=== PATIENT | male | born 1985 | race Caucasian/White ===

== ENCOUNTER 2018-09-05 19:27 | Observation (INO) | payer BC, OTHER ==
[~2018-09-05] VITALS: Ht 165.1 cm; Wt 130.0 kg
[2018-09-05] MEDS ORDERED: hydrALAzine 20 MG INJ IV ONE (22:30)
[2018-09-05] MEDS ORDERED: ENALAPRILAT 1.25 MG INJ IV ONE (22:30)
[2018-09-05] MEDS ORDERED: NITROGLYCERIN (SL) 0.4 MG TAB SL ONE (22:30)
[2018-09-06] VITALS (10 sets, daily range): BP systolic 133–176; BP diastolic 73–95; PULSE 85–120; RESP 18–21; Ht 165.1 cm; Wt 130.0 kg
[2018-09-06] MEDS ORDERED: METOPROLOL 5 MG INJ IV ONE (00:30)
--- NOTE | 2018-09-06 02:19 | ERD ---
ER Documentation Chief Complaint Chief Complaint numbness of hands,no droop, high blood pressure not on meds HPI Is a 33-year-old male comes in with numbness in his hands noted with elevated blood pressure. He has a history of blood pressure but has not been taking his meds for the past 6 months. Denies any fevers chills nausea vomiting. He did complain of mild chest pain that is since resolved. No shortness of breath. No other current issues. ROS All systems reviewed and are negative except as per history of present illness. Medications Home Meds No Active Prescriptions or Reported Meds Allergies Allergies: Coded Allergies: No Known Allergy (Unverified , 09/05/18) PMhx/Soc Medical and Surgical Hx: pt denies Surgical Hx History of Surgery: No Anesthesia Reaction: No Hx Neurological Disorder: No Hx Respiratory Disorders: No Hx Cardiac Disorders: Yes (HTN) Hx Psychiatric Problems: No Hx Miscellaneous Medical Probl: No Hx Alcohol Use: Yes Hx Substance Use: No Hx Tobacco Use: No Smoking Status: Never smoker Physical Exam Vitals Vital Signs Date Temp Pulse Resp B/P (MAP) Pulse Ox O2 O2 Flow FiO2 Time Delivery Rate 09/06/18 82 16 181/117 99 Room Air 00:43 (138) 09/05/18 108 19 205/132 99 Room Air 23:28 (156) 09/05/18 94 13 219/140 100 Room Air 22:00 (166) 09/05/18 98.8 105 18 253/155 98 20:02 (187) Physical Exam Const: No acute distress Head: Atraumatic Eyes: Normal Conjunctiva ENT: Normal External Ears, Nose and Mouth. Neck: Full range of motion. No meningismus. Resp: Clear to auscultation bilaterally Cardio: Regular rate and rhythm, no murmurs Abd: Soft, non tender, non distended. Normal bowel sounds Skin: No petechiae or rashes Back: No midline or flank tenderness Ext: No cyanosis, or edema Neur: Awake and alert Psych: Normal Mood and Affect Result Diagram: 09/05/18215409/05/182154 Results 24 hrs Laboratory Tests Test 09/05/18 21:55 White Blood Count 14.2 10^3/ul Red Blood Count 5.43 10^6/ul Hemoglobin 16.0 g/dl Hematocrit 48.1 % Mean Corpuscular Volume 88.6 fl Mean Corpuscular Hemoglobin 29.5 pg Mean Corpuscular Hemoglobin Concent 33.3 g/dl Red Cell Distribution Width 13.1 % Platelet Count 297 10^3/UL Mean Platelet Volume 9.4 fl Immature Granulocytes % 0.500 % Neutrophils % 77.6 % Lymphocytes % 15.4 % Monocytes % 4.4 % Eosinophils % 1.2 % Basophils % 0.9 % Nucleated Red Blood Cells % 0.0 /100WBC Immature Granulocytes # 0.070 10^3/ul Neutrophils # 11.0 10^3/ul Lymphocytes # 2.2 10^3/ul Monocytes # 0.6 10^3/ul Eosinophils # 0.2 10^3/ul Basophils # 0.1 10^3/ul Nucleated Red Blood Cells # 0.0 10^3/ul Sodium Level 143 mmol/L Potassium Level 4.3 mmol/L Chloride Level 101 mmol/L Carbon Dioxide Level 27 mmol/L Anion Gap 15 Blood Urea Nitrogen 15 mg/dl Creatinine 1.35 mg/dl Est Glomerular Filtrat Rate mL/min > 60 mL/min Glucose Level 102 mg/dl Calcium Level 9.7 mg/dl Total Bilirubin 0.6 mg/dl Direct Bilirubin 0.00 mg/dl Indirect Bilirubin 0.6 mg/dl Aspartate Amino Transf (AST/SGOT) 48 IU/L Alanine Aminotransferase (ALT/SGPT) 44 IU/L Alkaline Phosphatase 110 IU/L Troponin I < 0.012 ng/ml Total Protein 8.6 g/dl Albumin 4.7 g/dl Globulin 3.90 g/dl Albumin/Globulin Ratio 1.20 Lipase 50 U/L Current Medications Medications Dose Sig/Jeff Start Time Status Last (Trade) Ordered Route PRN Stop Time Admin Dose Reason Admin 1 tab ONCE ONCE 09/05/18 DC 09/05/18 Nitroglycerin SL 22:30 22:11 09/05/18 22:31 (Nitroglyceri n (Sl Tab) 0.4 Mg) Enalaprilat 1.25 mg ONCE ONCE 09/05/18 DC 09/05/18 (Vasotec Iv) IV 22:30 22:11 09/05/18 22:31 Hydralazine 10 mg ONCE ONCE 09/05/18 DC 09/05/18 HCl IV 22:30 22:55 (Apresoline) 09/05/18 22:31 Metoprolol 5 mg ONCE ONCE 09/06/18 DC 09/06/18 Tartrate IV 00:30 00:24 (Lopressor) 09/06/18 00:31 Procedures/MDM EKG: Rate/Rhythm: [Normal Sinus Rhythm] QRS, ST, T-waves: [No changes consistent w/ acute ischemia] Impression: [No evidence of ischemia or arrhythmia] Chest X-ray 1V Interpreted by me: Soft Tissue: No acute abnormalities Bones: No acute abnormalities Mediastinum/Cardiac Silhouette/Lungs: [No acute abnormalities] Patient's symptoms are concerning for cardiac cause will require inpatient workup and continuous monitoring. Further w/u for ischemia, arrhythmia, PE or dissection will be deferred to the inpatient team. Accepting Care Team: Current data and ongoing care discussed. Time: 1 AM Primary Provider: Dr. Bush Consulting: [[employer]] Outstanding Data: none Departure Diagnosis: Primary Impression: Chest pain Chest pain type: unspecified Qualified Codes: R07.9 - Chest pain, unspecified Additional Impression: Hypertensive emergency Condition: Serious PAT LYN Sep 06, 2018 02:19
[2018-09-06] MEDS ORDERED: ENALAPRILAT 1.25 MG INJ IV ONE (03:00)
[2018-09-06] MEDS ORDERED: hydrALAzine 20 MG INJ IV ONE (04:00)
--- NOTE | 2018-09-06 05:40 | NUR ---
RECEIVED PATIENT FROM ER NURSE, BROUGHT IN VIA STRETCHER, VITAL SIGNS STABLE, REFUSES SKIN PICTURES TAKEN, SKIN INTACT. DENIES ANY PAIN. cALLED DR. CHEUNG FOR NEW ADMIT ORDERS.
[2018-09-06] MEDS ORDERED: ACETAMINOPHEN 325 MG TAB PO PRN (06:30)
[2018-09-06] MEDS ORDERED: NACL 0.9% 3 ML SYG IV SCH (06:30)
[2018-09-06] MEDS ORDERED: ONDANSETRON 4 MG INJ IV PRN (06:30)
[2018-09-06] MEDS ORDERED: DOCUSATE SODIUM 100 MG CAP PO PRN (06:30)
--- NOTE | 2018-09-06 11:24 | HP ---
LÁZARO GUERRA 09/06/18 1119: Date/Time of Note Date/Time of Note DATE: 09/06/18 TIME: 11:09 Assessment/Plan VTE Prophylaxis Risk score (from [facility])>0 risk: 2 SCD applied (from [facility]): No SCD contraindicated: low risk/ambulating Pharmacological prophylaxis: NA/contraindicated Pharm contraindication: low risk/ambulating Lines/Catheters IV Catheter Type (from [facility]): Saline Lock Assessment/Plan Hospital Course 1. SIRS, UA WILL BE COLLECTED. CHEST xRAY IS CLEAR, 2. Hypertension uncontrolled 3. Morbid obesity 4. Elevated creatinine, baseline is unknown. This is pt first visit to [facility] 5. Elevated CK Assessment/Plan -telemetry -US kidney -BP control -DVT proph. Ambulation -GI proph. Protonix -dr Snyder cardiology CALLED -check Hc A1 C -ua TO Result Diagram: 09/05/18215409/05/182154 Results 24hrs Laboratory Tests Test 09/05/18 21:55 09/06/18 07:37 White Blood Count 14.2 H Red Blood Count 5.43 Hemoglobin 16.0 Hematocrit 48.1 Mean Corpuscular Volume 88.6 Mean Corpuscular Hemoglobin 29.5 Mean Corpuscular Hemoglobin Concent 33.3 Red Cell Distribution Width 13.1 Platelet Count 297 Mean Platelet Volume 9.4 Immature Granulocytes % 0.500 H Neutrophils % 77.6 H Lymphocytes % 15.4 Monocytes % 4.4 Eosinophils % 1.2 Basophils % 0.9 Nucleated Red Blood Cells % 0.0 Immature Granulocytes # 0.070 H Neutrophils # 11.0 H Lymphocytes # 2.2 Monocytes # 0.6 Eosinophils # 0.2 Basophils # 0.1 Nucleated Red Blood Cells # 0.0 Sodium Level 143 Potassium Level 4.3 Chloride Level 101 Carbon Dioxide Level 27 Anion Gap 15 H Blood Urea Nitrogen 15 Creatinine 1.35 H Est Glomerular Filtrat Rate mL/min > 60 Glucose Level 102 Calcium Level 9.7 Total Bilirubin 0.6 Direct Bilirubin 0.00 Indirect Bilirubin 0.6 Aspartate Amino Transf (AST/SGOT) 48 H Alanine Aminotransferase (ALT/SGPT) 44 Alkaline Phosphatase 110 Troponin I < 0.012 < 0.012 Total Protein 8.6 H Albumin 4.7 Globulin 3.90 H Albumin/Globulin Ratio 1.20 Lipase 50 D-Dimer 400.64 D-Dimer Comment Creatine Kinase 280 H Creatine Kinase Index 0.5 Creatinine Kinase MB (Mass) 1.40 HPI/ROS Admit Date/Time Admit Date/Time Sep 06, 2018 at 01:30 Hx of Present Illness This is a 33-year-old male comes to ER in with numbness in his hands. In ER noted elevated blood pressure. He has a history of blood pressure but has not been taking his meds for the past 6 months. Denies any fevers chills nausea vomiting. He did complain of mild chest pain that is since resolved. No shortness of breath. Swollen ankles sometimes. ROS gain weight recently Musculoskeletal: swelling (lower extremities) Skin: other (paresthesia) PMH/Family/Social Past Medical History Medical History: hypertension Medications Current Medications IV Flush (NS 3 ml) 3 ml PER PROTOCOL IV ; Start 09/06/18 at 06:30 Ondansetron HCl (Zofran Inj) 4 mg Q6H PRN IV NAUSEA; Start 09/06/18 at 06:30 Acetaminophen (Tylenol Tab) 650 mg Q6H PRN PO PAIN; Start 09/06/18 at 06:30 Docusate Sodium (Colace) 100 mg Q12H PRN PO CONSTIPATION; Start 09/06/18 at 06:30 Pantoprazole (Protonix Tab) 40 mg DAILY@06 PO ; Start 09/07/18 at 06:00 Coded Allergies: No Known Allergy (Unverified , 09/05/18) Past Surgical History Past Surgical Hx: other (knee arthroscopy 2009) Family History Significant Family History: diabetes (father), hypertension (father) Social History Alcohol Use: none Smoking Status: Never smoker Drug Use: none Exam/Review of Systems Vital Signs Vitals Vital Signs Date Temp Pulse Resp B/P (MAP) Pulse Ox O2 O2 Flow FiO2 Time Delivery Rate 09/06/18 120 08:23 09/06/18 97.3 20 158/92 94 Room Air 07:53 (114) Exam Constitutional: alert, oriented Neck: supple Respiratory: clear to auscultation Cardiovascular: regular rate and rhythm Gastrointestinal: soft Genitourinary - Male: CVA tenderness; No nl penis, No nl scrotum, No discharge, No other LÁZARO CHEUNG MD 09/06/18 1539: Assessment/Plan Assessment/Plan Assessment/Plan SEEN AND EXAMINED NO CP BUT LARM NUMBESS RESOLVED CARDS WAS CALLED SIRS IV FLUIDS ANXIETY? Result Diagram: 09/05/18215409/05/182154 PMH/Family/Social Past Medical History Coded Allergies: No Known Allergy (Unverified , 09/05/18) LÁZARO PARRA Sep 06, 2018 11:19 LÁZARO CHEUNG MD Sep 06, 2018 15:39
[2018-09-06] MEDS ORDERED: NIFEdipine 10 MG CAP PO SCH (12:30)
[2018-09-06] MEDS: METOPROLOL 25 MG TAB PO SCH ×2 (12:36→20:54)
[2018-09-06] MEDS ORDERED: hydrALAzine 20 MG INJ IV PRN (13:30)
--- NOTE | 2018-09-06 13:32 | CONS ---
DATE OF ADMISSION: 09/06/2018 DATE OF CONSULTATION: 09/06/2018 TYPE OF CONSULTATION: Cardiology. REASON FOR CONSULTATION: Hypertension, reported chest pain. REQUESTING PHYSICIAN: Jong Chauhan MD HISTORY OF PRESENT ILLNESS: Mr. 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 The patient denied associated chest pain, shortness of breath. The patient presented here to the emergency department where upon arrival, temperature was 98.8, blood pressure was markedly elevated at 190/100, pulse 105, respiratory rate 18 and satting 98%. The patient's labs revealed a D-dimer of 400, a sodium of 143, potassium 4.3, creatinine 1.35, BUN 15, AST 48, ALT 44, troponin negative. White blood cell count 14.2, hemoglobin of 16, platelet count 297. The patient underwent a chest x-ray revealing no acute cardiopulmonary abnormalities, a brain CT revealed no acute intracranial hemorrhage, transcranial infarct or mass effect and a renal ultrasound that revealed unremarkable renal ultrasound. The patient has been admitted to the floor and was noted to be tachycardic. He states he feels anxious and has been placed on a beta jose luis with nifedipine, et cetera. PAST MEDICAL HISTORY: As above in HPI. MEDICATIONS CURRENTLY IN THE HOSPITAL: 1. Protonix 40 mg daily. 2. Procardia 10 mg p.o. q.6. 3. Metoprolol 25 mg p.o. b.i.d. 4. Zofran p.r.n. 5. Tylenol p.r.n. ALLERGIES: NO KNOWN DRUG ALLERGIES. SOCIAL HISTORY: No current tobacco, social EtOH, no illicit drug use. FAMILY HISTORY: No history of sudden cardiac or early CAD. REVIEW OF SYSTEMS: As above in HPI. CONSTITUTIONAL: No fevers, chills. PULMONARY: No current shortness of breath. CARDIOVASCULAR: No current chest pain. GASTROINTESTINAL: No vomiting. GENITOURINARY: No hematuria. MUSCULOSKELETAL: Degenerative joint disease. PSYCHIATRIC: No documented psych history. NEUROLOGIC: No documented history of CVA. ENDOCRINE: No documented diabetes mellitus or thyroid disease. PHYSICAL EXAMINATION: VITAL SIGNS: Temperature 98.3, blood pressure most recently 155/95, pulse 110, respiratory rate 20, satting 97% on room air. GENERAL: The patient is alert, awake, in no acute distress. NECK: JVP approximately 8 is 9 cm water. CHEST: Fair air movement throughout. HEART: Tachycardic, regular rhythm, normal S1, S2, I/ systolic murmur, nondisplaced PMI. ABDOMEN: Positive bowel sounds, soft. EXTREMITIES: No significant pitting edema, 1+ pulses bilateral posterior tibial. LABORATORY DATA: As above in HPI. No further labs for my review at this time. IMAGING STUDIES: As above in HPI. No further images for my review at this time. ELECTROCARDIOGRAM: As above in HPI. No further electrocardiograms for my review at this time. IMPRESSION: 1. Hypertensive urgency/emergency, slowly improving on oral antihypertensives at this time. 2. Tachycardia consistent with sinus tachycardia at this time, questionable anxiety and pain. 3. Abnormal electrocardiogram, assess for acute coronary syndrome. 4. Renal failure. RECOMMENDATIONS: 1. At this time, we would maintain the patient on telemetry monitoring to follow rhythm and rate control closely. 2. Continue the patient's antihypertensives with up titration as necessary to improve overall systolic blood pressure and heart rate control. 3. We would complete a rule out for myocardial infarction to ensure the patient's constellation of symptoms are not a result of an acute coronary syndrome in the setting of hypertensive urgency and emergency. 4. We would check a 2D echo for this patient's ejection fraction, wall motion, any major valve abnormalities. 5. We would consider gentle IV fluid hydration and follow the patient's creatinine closely as well as a heart rate. 6. We will continue to check serial EKGs, assess for ongoing changes, EKG in the morning, EKG for any complaints of chest pain or change in rhythm. 7. I will check a TSH to ensure subclinical hyperthyroidism is not contributing to bouts of tachyarrhythmia and check a fasting lipid panel for general risk stratification and initiate lipid lowering agents as necessary. Thank you for allowing me to take part in the care of this patient. I will continue to follow him very closely with you with further recommendations to be made as the patient progresses through his inpatient hospital clinical course. Dictated By: PASQUALE FIELDS/ELLIE Conf#: [id number] DID#: [id number] CC: JONG CHAUHAN MD;*EndCC* MTDD
[2018-09-06] MEDS ORDERED: SOD CHLORIDE 0.9% 500 ML IV ONE (14:00)
[2018-09-06] MEDS: SOD CHLORIDE 0.45% 1,000 ML IV SCH (14:27)
[2018-09-06] MEDS ORDERED: LORAZEPAM 0.5 MG TAB PO PRN (16:00)
--- NOTE | 2018-09-06 18:40 | NUR ---
EOSS: PT DX HTN CRISIS. RESUMED MEDS. DR GREENBERG CONSULTED HIM. STARTED IV FLUIDS. ALL NEEDS MET.CONTINUE POC.
--- NOTE | 2018-09-06 19:46 | RADRPT ---
Echocardiogram Report Patient Name: GEN MELGAR Gender: Male Date: 1985 Study Date: 06-Sep-2018 Health Care Legal Assistant: Vishnu Kerr [facility] Location: [facility] Ref. Physician: LÁZARO CHEUNG Quality: Adequate Procedures: Transthoracic echocardiogram with complete 2D, M-Mode, and doppler examination. Indications: Chest Pain. 2D/M Mode Doppler Measurement Value Normal Ranges Measurement Value Normal Ranges LVIDd 2D 5.3 3.5 - 5.6 cm AV Peak Conor 1.7 m/sec LVIDs 2D 2.5 2.1 - 4.1 cm AV Peak PG 12.0 mmHg LVPWd 2D 1.2 0.6 - 1.1 cm LVOT Peak Conor 1.2 m/sec IVSd 2D 1.2 0.6 - 1.1 cm LVOT Peak PG 6.0 mmHg AoR Diam 2D 2.9 2.0 - 3.7 cm RA Pressure 3.0 LA/Ao 2D 1 0 - 1 LA Dimen 2D 3.4 2.3 - 4.0 cm Findings Left Ventricle: Normal left ventricular systolic function. Normal left ventricular cavity size. Mild concentric left ventricular hypertrophy. Ejection fraction is visually estimated at 5560 %. Right Ventricle: Normal right ventricular size. Normal right ventricular systolic function. Left Atrium: The left atrium is normal in size. Right Atrium: The right atrium is normal in size. Mitral Valve: Normal appearance and function of the mitral valve with trace physiologic regurgitation. Aortic Valve: Normal appearance of the aortic valve. No significant aortic stenosis or insufficiency. Tricuspid Valve: Normal appearance of the tricuspid valve. Unable to obtain RVSP due to minimal presence of tricuspid regurgitation. Pulmonic Valve: Normal pulmonic valve appearance. Pericardium: Normal pericardium with no significant pericardial effusion. Aorta: Normal aortic root. IVC: Normal size and normal respiratory collapse consistent with normal right atrial pressure. Conclusions Normal left ventricular systolic function. Normal left ventricular cavity size. Mild concentric left ventricular hypertrophy. Ejection fraction is visually estimated at 55-60 %. Normal appearance and function of the mitral valve with trace physiologic regurgitation. Normal appearance of the tricuspid valve. Unable to obtain RVSP due to minimal presence of tricuspid regurgitation. Electronically Signed By: Marques Snyder 06-Sep-2018 19:45:09 -0800 Patient Name: GEN MELGAR Study Date: 06-Sep-2018 [id number]
[2018-09-06] MEDS: NIFEdipine (XL) 30 MG TAB PO SCH (20:55)
[2018-09-07] VITALS (8 sets, daily range): BP systolic 156–166; BP diastolic 90–96; PULSE 81–110; RESP 18–20
[2018-09-07] MEDS ORDERED: PANTOPRAZOLE (EC) 40 MG TAB PO SCH (06:00)
--- NOTE | 2018-09-07 06:07 | NUR ---
PT REMAIN STABLE CONDITION OVERNIGHT. DENIES ANY PAIN. NO SIGN OF ACUTE DISTRESS NOTED. BLOOD PRESSURE TRENDING DOWN. ALL NEEDS ATTENDED TO. WILL ENDORSE TO DAY SHIFT FOR CONTINUITY OF CARE.
[2018-09-07] MEDS: METOPROLOL 25 MG TAB PO SCH (08:19)
[2018-09-07] MEDS: NIFEdipine (XL) 30 MG TAB PO SCH (08:19)
--- NOTE | 2018-09-07 09:23 | PN ---
Date/Time of Note Date/Time of Note DATE: 09/07/18 TIME: 09:22 Assessment/Plan VTE Prophylaxis [place] risk: 2 SCD applied [place] No SCD contraindicated: low risk/ambulating Pharmacological prophylaxis: NA/contraindicated Pharm contraindication: low risk/ambulating Lines/Catheters IV Catheter Type (from [facility]): Peripheral IV Assessment/Plan Hospital Course 1. SIRS, UA WILL BE COLLECTED. CHEST xRAY IS CLEAR, 2. Hypertension uncontrolled 3. Morbid obesity 4. Elevated creatinine, baseline is unknown. This is pt first visit to [facility] 5. Elevated CK 6. Hyperlipidemia Assessment/Plan -telemetry - kidney -BP control -DVT proph. Ambulation -GI proph. Protonix -dr Snyder cardiology CALLED -check Hc A1 C -ua TO Result Diagram: 09/07/18 0529 09/07/18 0525 Results 24hrs Laboratory Tests Test 09/06/18 12:55 09/06/18 14:00 09/07/18 05:25 09/07/18 05:29 Creatine Kinase 248 H Creatine Kinase 0.5 Index Creatinine Kinase MB 1.34 (Mass) Troponin I < 0.012 Urine Color STRAW Urine Clarity CLEAR Urine pH 7.0 Urine Specific 1.008 [place] Urine Ketones NEGATIVE Urine Nitrite NEGATIVE Urine Bilirubin NEGATIVE Urine Urobilinogen NEGATIVE Urine Leukocyte NEGATIVE Esterase Urine Microscopic 0 RBC Urine Microscopic 0 WBC Urine Hemoglobin NEGATIVE Urine Glucose NEGATIVE Urine Total Protein 2+ H Sodium Level 141 Potassium Level 4.0 Chloride Level 104 Carbon Dioxide Level 25 Anion Gap 12 Blood Urea Nitrogen 15 Creatinine 1.22 Est Glomerular > 60 Filtrat Rate mL/min Glucose Level 98 Calcium Level 9.0 White Blood Count 14.7 H Red Blood Count 5.10 Hemoglobin 14.9 Hematocrit 45.1 Mean Corpuscular 88.4 Volume Mean Corpuscular 29.2 Hemoglobin Mean Corpuscular 33.0 Hemoglobin Concent Red Cell 13.2 Distribution Width Platelet Count 287 Mean Platelet Volume 9.3 Immature 0.500 H Granulocytes % Neutrophils % 76.6 Lymphocytes % 14.7 L Monocytes % 6.6 Eosinophils % 1.1 Basophils % 0.5 Nucleated Red Blood 0.0 Cells % Immature 0.080 H Granulocytes # Neutrophils # 11.2 H Lymphocytes # 2.2 Monocytes # 1.0 H Eosinophils # 0.2 Basophils # 0.1 Nucleated Red Blood 0.0 Cells # Hemoglobin A1c 5.1 Triglycerides Level 109 Cholesterol Level 191 LDL Cholesterol, 124 Calculated HDL Cholesterol 45 Cholesterol/HDL 4.2 Ratio Thyroid Stimulating 2.260 Hormone (TSH) Subjective 24 Hr Interval Summary Constitutional: improved Exam/Review of Systems Exam Vitals Vital Signs Date Temp Pulse Resp B/P (MAP) Pulse Ox O2 O2 Flow FiO2 Time Delivery Rate 09/07/18 98.3 110 20 156/90 98 Room Air 08:03 (112) Intake and Output 09/06/18 09/06/18 09/07/18 1515:00 23:00 07:00 IntakeIntake Total 2000 ml 1500 ml BalanceBalance 2000 ml 1500 ml Constitutional: alert, oriented Respiratory: clear to auscultation Cardiovascular: regular rate and rhythm Results Results 24hrs Laboratory Tests Test 09/06/18 12:55 09/06/18 14:00 09/07/18 05:25 09/07/18 05:29 Creatine Kinase 248 H Creatine Kinase 0.5 Index Creatinine Kinase MB 1.34 (Mass) Troponin I < 0.012 Urine Color STRAW Urine Clarity CLEAR Urine pH 7.0 Urine Specific 1.008 [place] Urine Ketones NEGATIVE Urine Nitrite NEGATIVE Urine Bilirubin NEGATIVE Urine Urobilinogen NEGATIVE Urine Leukocyte NEGATIVE Esterase Urine Microscopic 0 RBC Urine Microscopic 0 WBC Urine Hemoglobin NEGATIVE Urine Glucose NEGATIVE Urine Total Protein 2+ H Sodium Level 141 Potassium Level 4.0 Chloride Level 104 Carbon Dioxide Level 25 Anion Gap 12 Blood Urea Nitrogen 15 Creatinine 1.22 Est Glomerular > 60 Filtrat Rate mL/min Glucose Level 98 Calcium Level 9.0 White Blood Count 14.7 H Red Blood Count 5.10 Hemoglobin 14.9 Hematocrit 45.1 Mean Corpuscular 88.4 Volume Mean Corpuscular 29.2 Hemoglobin Mean Corpuscular 33.0 Hemoglobin Concent Red Cell 13.2 Distribution Width Platelet Count 287 Mean Platelet Volume 9.3 Immature 0.500 H Granulocytes % Neutrophils % 76.6 Lymphocytes % 14.7 L Monocytes % 6.6 Eosinophils % 1.1 Basophils % 0.5 Nucleated Red Blood 0.0 Cells % Immature 0.080 H Granulocytes # Neutrophils # 11.2 H Lymphocytes # 2.2 Monocytes # 1.0 H Eosinophils # 0.2 Basophils # 0.1 Nucleated Red Blood 0.0 Cells # Hemoglobin A1c 5.1 Triglycerides Level 109 Cholesterol Level 191 LDL Cholesterol, 124 Calculated HDL Cholesterol 45 Cholesterol/HDL 4.2 Ratio Thyroid Stimulating 2.260 Hormone (TSH) LÁZARO PARRA Sep 07, 2018 09:23
[2018-09-07] MEDS: SOD CHLORIDE 0.45% 1,000 ML IV SCH (10:00)
--- NOTE | 2018-09-07 10:11 | PDOCDIS ---
Discharge Instructions DIAGNOSIS Discharge Diagnosis hypertensive crisis CONDITION [id number] Patient Condition: [id number] Good HOME CARE INSTRUCTIONS: [id number] Diet Instructions: [id number] Activity Restrictions: [id number] Slowly Increase Activity FOLLOW UP/APPOINTMENTS Follow-up Plan PCP 1 week SCHOOL/WORK RELEASE May return to School/Work with: No Restrictions LÁZARO PARRA Sep 07, 2018 10:11
[2018-09-07] MEDS ORDERED: NIFE30TA2 PO (10:12)
[2018-09-07] MEDS ORDERED: SIMV20TA2 PO (10:12)
[2018-09-07] MEDS ORDERED: METO-448 PO (10:12)
--- NOTE | 2018-09-07 10:13 | DS ---
Date/Time of Note Date/Time of Note DATE: 09/07/18 TIME: 10:13 Discharge Summary Admission/Discharge Info Admit Date/Time Sep 06, 2018 at 01:30 Discharge Date/Time Discharge Diagnosis hypertensive crisis Patient Condition: Stable Consults Dr Snyder, cardiology Hospital Course his is a 33-year-old male comes to ER in with numbness in his hands. In ER noted elevated blood pressure. He has a history of blood pressure but has not been taking his meds for the past 6 months. Denies any fevers chills nausea vomiting. He did complain of mild chest pain that is since resolved. No shortness of breath. Swollen ankles sometimes. 1. SIRS, UA WILL BE COLLECTED. CHEST xRAY IS CLEAR, 2. Hypertension uncontrolled 3. Morbid obesity 4. Elevated creatinine, baseline is unknown. This is pt first visit to [facility] 5. Elevated CK 6. Hyperlipidemia During hospitalization pt maintained on telemetry monitoring to follow rhythm and rate control closely. Dr Snyder continued the patient's antihypertensives with up titration as necessary to improve overall systolic blood pressure and heart rate control. He ruled out him for myocardial infarction to ensure the patient's constellation of symptoms are not a result of an acute coronary syndrome in the setting of hypertensive urgency and emergency, negative. 2D echo for this patient's ejection fraction, wall motion, any major valve abnormalities normal. Pt TSH was normal. Home Meds Active Scripts Simvastatin (Simvastatin) 20 Mg Tablet, 20 MG PO DAILY, #30 TAB Prov:LÁZARO PARRA 09/07/18 Nifedipine (Procardia Xl) 30 Mg Tab.er.24, 30 MG PO BID for 30 Days, TAB Prov:LÁZARO PARRA 09/07/18 Metoprolol Tartrate* (Lopressor*) 25 Mg Tab, 50 MG PO BID for 30 Days, TAB Prov:ZENTSEVReginaLÁZARO 09/07/18 Follow-up Plan PCP 1 week Primary Care Provider Not On Staff Doctor Time spent on discharge: < 30 minutes Pending Labs Laboratory Tests Test 09/06/18 12:55 09/06/18 14:00 09/07/18 05:25 09/07/18 05:29 Creatine 248 Kinase IU/L (23-200) Creatine Kinase 0.5 Index Creatinine 1.34 Kinase MB ng/ml (0.0-2.4) (Mass) Troponin I < 0.012 ng/ml (0.000-0. 120) Urine Color STRAW (YELLOW) Urine Clarity CLEAR (CLEAR) Urine pH 7.0 (5.0-9.0) Urine Specific 1.008 (1.003-1 Bernice .030) Urine Ketones NEGATIVE mg/dL (NEGATIV E) Urine Nitrite NEGATIVE mg/dL (NEGATIV E) Urine NEGATIVE Bilirubin mg/dL (NEGATIV E) Urine NEGATIVE Urobilinogen mg/dL (NEGATIV E) Urine Leukocyte NEGATIVE Bryson/u Esterase l Urine 0 /HPF (0-5) Microscopic RBC Urine 0 /HPF (0-5) Microscopic WBC Urine NEGATIVE Hemoglobin mg/dL (NEGATIV E) Urine Glucose NEGATIVE mg/dL (NEGATIV E) Urine Total 2+ Protein mg/dl (NEGATIV E) Sodium Level 141 mmol/L (135-14 4) Potassium 4.0 Level mmol/L (3.5-5. 1) Chloride Level 104 mmol/L (97-110 ) Carbon Dioxide 25 Level mmol/L (21-31) Anion Gap 12 (5-13) Blood Urea 15 Nitrogen mg/dl (7-20) Creatinine 1.22 mg/dl (0.61-1. 24) Est Glomerular > 60 Filtrat mL/min (>60) Rate mL/min Glucose Level 98 mg/dl (70-220) Calcium Level 9.0 mg/dl (8.4-10. 2) White Blood 14.7 Count 10^3/ul (4.8-1 0.8) Red Blood 5.10 Count 10^6/ul (4.70- 6.10) Hemoglobin 14.9 g/dl (14.0-18. 0) Hematocrit 45.1 % (42.0-52.0) Mean 88.4 Corpuscular fl (82.0-101.0 Volume ) Mean 29.2 Corpuscular pg (29.0-33.0) Hemoglobin Mean 33.0 Corpuscular g/dl (32.0-37. Hemoglobin Conc 0) ent Red Cell 13.2 Distribution % (11.5-14.5) Width Platelet Count 287 10^3/UL (140-4 15) Mean Platelet 9.3 Volume fl (7.4-10.4) Immature 0.500 Granulocytes % % (0.001-0.429 ) Neutrophils % 76.6 % (39.0-77.0) Lymphocytes % 14.7 % (15.0-51.0) Monocytes % 6.6 % (0.0-11.0) Eosinophils % 1.1 % (0.0-7.0) Basophils % 0.5 % (0.0-2.0) Nucleated Red 0.0 Blood Cells % /100WBC (0.0-0 .0) Immature 0.080 Granulocytes # 10^3/ul (0.0-0 .031) Neutrophils # 11.2 10^3/ul (1.6-7 .5) Lymphocytes # 2.2 10^3/ul (0.8-2 .9) Monocytes # 1.0 10^3/ul (0.3-0 .9) Eosinophils # 0.2 10^3/ul (0.0-0 .5) Basophils # 0.1 10^3/ul (0.0-0 .1) Nucleated Red 0.0 Blood Cells # 10^3/ul (0.0-0 .0) Hemoglobin A1c 5.1 % (0-5.9) Triglycerides 109 Level mg/dl (0-149) Cholesterol 191 Level mg/dl (100-200 ) LDL 124 mg/dl Cholesterol, Calculated HDL 45 Cholesterol mg/dl (28-63) Cholesterol/HDL 4.2 RATIO Ratio Thyroid 2.260 Stimulating MIU/L (0.465-4 Hormone (TSH) .680) LÁZARO PARRA Sep 07, 2018 10:13
--- NOTE | 2018-09-07 12:57 | CONS ---
Assessment/Plan Assessment/Plan Assessment/Plan (Daily) 1. Hypertensive urgency/emergency, slowly improving on oral antihypertensives at this time - much better now - will monitor clinically. 2. Tachycardia consistent with sinus tachycardia at this time, questionable anxiety and pain - rate much better, will follow. 3. Abnormal electrocardiogram, assess for acute coronary syndrome. 4. Renal failure- stable urine output, renal team follows. Consultation Date/Type/Reason Admit Date/Time Sep 06, 2018 at 01:30 Initial Consult Date Date/Time of Note DATE: 09/07/18 TIME: 12:54 24 HR Interval Summary Free Text/Dictation NO acute events - pt better - dispo planned. ROS: No fever, no chills, no nausea, no vomiting, no diarrhea/constipation No recent weight changes No chest pain, no PND, no orthopnea - mild SOB No dizziness, blurred vision No thirst, no heat or cold intolerance Exam/Review of Systems Exam Vitals Vital Signs Date Temp Pulse Resp B/P (MAP) Pulse Ox O2 O2 Flow FiO2 Time Delivery Rate 09/07/18 98.1 88 20 164/95 95 Room Air 11:50 (118) Intake and Output 09/06/18 09/06/18 09/07/18 1515:00 23:00 07:00 IntakeIntake Total 2000 ml 1500 ml BalanceBalance 2000 ml 1500 ml Additional Comments General: WN/WD/NAD, AOx 3 HEENT: Unicetric/atraumatic/EOMI (follows commands) NECK: JVD elevated, no thyromegaly Lymph: no lymphadenopathy HEART: regular with no S3, II/ systolic murmur at apex LUNGS: Coarse sounds ABD: soft, NT, ND, +BS : Intact Neuro: non focal SKIN: chronic changes EXT: trace edema Results Result Diagram: 09/07/1852809/07/18 05 Results 24hrs Laboratory Tests Test 09/06/18 12:55 09/06/18 14:00 09/07/18 05:25 09/07/18 05:29 Creatine Kinase 248 H Creatine Kinase 0.5 Index Creatinine Kinase MB 1.34 (Mass) Troponin I < 0.012 Urine Color STRAW Urine Clarity CLEAR Urine pH 7.0 Urine Specific 1.008 Flora Urine Ketones NEGATIVE Urine Nitrite NEGATIVE Urine Bilirubin NEGATIVE Urine Urobilinogen NEGATIVE Urine Leukocyte NEGATIVE Esterase Urine Microscopic 0 RBC Urine Microscopic 0 WBC Urine Hemoglobin NEGATIVE Urine Glucose NEGATIVE Urine Total Protein 2+ H Sodium Level 141 Potassium Level 4.0 Chloride Level 104 Carbon Dioxide Level 25 Anion Gap 12 Blood Urea Nitrogen 15 Creatinine 1.22 Est Glomerular > 60 Filtrat Rate mL/min Glucose Level 98 Calcium Level 9.0 White Blood Count 14.7 H Red Blood Count 5.10 Hemoglobin 14.9 Hematocrit 45.1 Mean Corpuscular 88.4 Volume Mean Corpuscular 29.2 Hemoglobin Mean Corpuscular 33.0 Hemoglobin Concent Red Cell 13.2 Distribution Width Platelet Count 287 Mean Platelet Volume 9.3 Immature 0.500 H Granulocytes % Neutrophils % 76.6 Lymphocytes % 14.7 L Monocytes % 6.6 Eosinophils % 1.1 Basophils % 0.5 Nucleated Red Blood 0.0 Cells % Immature 0.080 H Granulocytes # Neutrophils # 11.2 H Lymphocytes # 2.2 Monocytes # 1.0 H Eosinophils # 0.2 Basophils # 0.1 Nucleated Red Blood 0.0 Cells # Hemoglobin A1c 5.1 Triglycerides Level 109 Cholesterol Level 191 LDL Cholesterol, 124 Calculated HDL Cholesterol 45 Cholesterol/HDL 4.2 Ratio Thyroid Stimulating 2.260 Hormone (TSH) VELVET JACKSON MD Sep 07, 2018 12:57
--- NOTE | 2018-09-10 13:47 | RADRPT ---
Vent Rate: 102 bpm RR Interval: 0 msec MN Interval: 156 msec QRS Duration: 100 msec QT Interval: 368 msec QTC Interval: 479 msec P-R-T [place]: 69 - 63 - 13 degrees Sinus tachycardia Cannot rule out Anterior infarct , age undetermined Abnormal ECG Electronically Signed By: Marques Snyder [id number]
== END 2018-09-07 13:04 | disposition home or self-care (01) ==
LOC: E/R 19:27 → 6WM 09-06 01:30 → INTOOBSV 09-06 01:30 → CANRESERV 09-06 01:46
PROVIDERS: ADMIT Internal Medicine Nephrology; ATTEND Internal Medicine Nephrology
DX: I16.9 Hypertensive crisis, unspecified (principal); I10 Essential (primary) hypertension; R07.9 Chest pain, unspecified; E66.01 Morbid (severe) obesity due to excess calories; Z68.42 Body mass index [BMI] 45.0-49.9, adult; E78.5 Hyperlipidemia, unspecified; N19 Unspecified kidney failure; R00.0 Tachycardia, unspecified; R94.31 Abnormal electrocardiogram [ECG] [EKG]; R51 Headache
CPT/HCPCS: 36415; 70450; 71045; 76775; 80048; 80053; 80061; 81001; 82550; 82553; 83036; 83690; 84443; 84484; 85025; 85378; 93005; 93306; 96374; 96375; J0360; J7040; Z7500; Z7502; Z7610; 99217; G0378